=== PATIENT | female | born 1965 | race African-American/Black ===

== ENCOUNTER 2017-08-01 08:55 | Outpatient (CLI) | payer BC ==
--- NOTE | 2017-08-01 12:07 | ULT ---
HEPATIC SONOGRAM WITH DUPLEX EVALUATION: HISTORY: Abnormal liver function tests. FINDINGS: Echogenic material layers within the dependent portion of the gallbladder lumen. No shadowing stones are visible. There is no gallbladder wall thickening or pericholecystic fluid. Common duct is 0.8 cm without internal echoes evident. The liver is heterogenous and hyperechoic, measuring up to 17.6 cm. No focal mass. No free fluid. Spleen is 8.7 cm. Good color and spectral Doppler flow are present within the hepatic and splenic arteries. Portal v enous flow is towards the liver. Hepatic venous flow is towards the IVC. IMPRESSION: 1. Biliary sludge within the gallbladder suggests chronic gallbladder dyskinesis. The common duct i s slightly dilated at 0.8 cm, although cause is not evident, and there are no other findings of acute biliary obstruction. Clinical correlation regarding other signs or symptoms of acute biliary obstru ction is required. 2. Hepatosteatosis. 3. No sonographic evidence of portal venous hypertension. POS: [facility]
== END 2017-08-01 08:56 | disposition home or self-care (01) ==
LOC: SCSULT 08:55
PROVIDERS: ATTEND Internal Medicine Gastroenterology
DX: R74.8 Abnormal levels of other serum enzymes (principal); K76.0 Fatty (change of) liver, not elsewhere classified
CPT/HCPCS: 76705

== ENCOUNTER 2017-08-24 13:24 | Outpatient (CLI) | payer BC | END 2017-08-24 13:25 | disposition home or self-care (01) | LOC: BICMAMMO 13:24 | PROVIDERS: ATTEND Internal Medicine | DX: N63.11 Unspecified lump in the right breast, upper outer quadrant (principal) | CPT/HCPCS: 77066; G0279 ==

== ENCOUNTER 2018-12-20 15:00 | Outpatient (CLI) | payer BC ==
--- NOTE | 2018-12-20 15:34 | MMO ---
Bilateral MAMMO Bilat Screen [facility]. CLINICAL HISTORY: Patient is 53 years old and is seen for screening. The patient has no family history of breast cancer. The patient has no personal history of cancer. The patient has a history of right Excisional Biopsy in Aug, 2006 - benign. VIEWS: The views performed were: bilateral craniocaudal with tomosynthesis and bilateral mediolateral oblique with tomosynthesis. FILMS COMPARED: The present examination has been compared to prior imaging studies performed at [facility] on 06/15/2006, 07/19/2007, 07/10/2016 and 08/24/2017. MAMMOGRAM FINDINGS: The breasts are heterogeneously dense, which could obscure a lesion on mammography. There are stable benign appearing calcifications seen in both breasts. There are no suspicious masses, suspicious calcifications, or new areas of architectural distortion. IMPRESSION: THERE IS NO MAMMOGRAPHIC EVIDENCE OF MALIGNANCY. A ROUTINE FOLLOW-UP MAMMOGRAM IN 1 YEAR IS RECOMMENDED. THE RESULTS OF THIS EXAM WERE SENT TO THE PATIENT. ACR BI-RADS Category 2 - Benign finding MAMMOGRAPHY NOTE: 1. A negative mammogram report should not delay a biopsy if a dominant of clinically suspicious mass is present. 2. Approximately 10% to 15% of breast cancers are not detected by mammography. 3. Adenosis and dense breasts may obscure an underlying neoplasm. Reported by: ELISABETH PELLETIER MD Electonically Signed: [id number]
== END 2018-12-20 15:01 | disposition home or self-care (01) ==
LOC: BICMAMMO 15:00
PROVIDERS: ATTEND Internal Medicine
DX: Z12.31 Encounter for screening mammogram for malignant neoplasm of breast (principal); Z91.89 Other specified personal risk factors, not elsewhere classified
CPT/HCPCS: 77063; 77067

== ENCOUNTER 2020-10-28 12:03 | Outpatient (CLI) | payer BC | END 2020-10-28 12:04 | disposition home or self-care (01) | LOC: BICMAMMO 12:03 | PROVIDERS: ATTEND Internal Medicine | DX: Z12.31 Encounter for screening mammogram for malignant neoplasm of breast (principal) | CPT/HCPCS: 77063; 77067 ==

== ENCOUNTER 2022-11-24 12:34 | Outpatient (CLI) | payer BC | END 2022-11-24 12:35 | disposition home or self-care (01) | LOC: BICMAMMO 12:34 | PROVIDERS: ATTEND Internal Medicine | DX: Z12.31 Encounter for screening mammogram for malignant neoplasm of breast (principal); Z91.89 Other specified personal risk factors, not elsewhere classified | CPT/HCPCS: 77063; 77067 ==

== ENCOUNTER 2023-11-26 07:43 | Outpatient (CLI) | payer BC | END 2023-11-26 07:44 | disposition home or self-care (01) | LOC: BICMAMMO 07:43 | PROVIDERS: ATTEND Internal Medicine | DX: Z12.31 Encounter for screening mammogram for malignant neoplasm of breast (principal); Z91.89 Other specified personal risk factors, not elsewhere classified | CPT/HCPCS: 77063; 77067 ==

== ENCOUNTER 2024-11-26 10:03 | Outpatient (CLI) | payer BC | END 2024-11-26 10:04 | disposition home or self-care (01) | LOC: BICMAMMO 10:03 | PROVIDERS: ATTEND Internal Medicine | DX: Z12.31 Encounter for screening mammogram for malignant neoplasm of breast (principal); Z91.89 Other specified personal risk factors, not elsewhere classified | CPT/HCPCS: 77063; 77067 ==

== ENCOUNTER 2024-12-08 08:03 | Outpatient (CLI) | payer BC | END 2024-12-08 08:04 | disposition home or self-care (01) | LOC: ULT 08:03 | PROVIDERS: ATTEND Internal Medicine | DX: R10.11 Right upper quadrant pain (principal); K76.0 Fatty (change of) liver, not elsewhere classified | CPT/HCPCS: 76700 ==